=== PATIENT | male | born 1970 | race Caucasian/White ===

== ENCOUNTER 2017-02-15 12:10 | Emergency (ER) | payer MEDICAID ==
[2017-02-15] MEDS ORDERED: Pantoprazole 40 mg EC Tab PO STA (13:00)
[2017-02-15] MEDS ORDERED: Pantoprazole 40 mg EC Tab PO ONE (13:02)
--- NOTE | 2017-02-15 15:53 | ER Physician Documentation ---
DATE OF SERVICE: 02/15/2017 A 47-year-old, weighing 280 pounds, holly ____. The patient was wearing flip flop and suddenly he broke the flip flop on the left and then he started having left knee pain. For past 3-4 days, it is getting worse, so he came to the Emergency Room. The patient came here, but we do not have any MRI machine. We explained to the patient. He understands. He will go to the hospital nearby [place], I believe, there an MRI could be done, so he can be seen what is going on. HISTORY OF PRESENT ILLNESS: This is only pain symptom that the patient has, otherwise, he has history of hypertension and obesity. For hypertension, he takes hydrochlorothiazide. For obesity, eats a good food cooked by his mother point. He does not have any rheumatic fever, valvular heart disease, pericardial disease, cardiomyopathy, atrial fibrillation, or any lung disease. He does not smoke. He does not drink. He works as a holly. He does not have any endocrine disease. No history of any prostate problems. No history of any burning in the urine. No history of frequency, dysuria. No history of abdominal pain, diarrhea or vomiting. PAST MEDICAL HISTORY: Benign and negative. PHYSICAL EXAMINATION: GENERAL: The patient appears to be awake, alert, oriented. He has some mild pain in the left knee joint ____ 5/10, especially if he moves around and walks, he will have some pain. He can walk. When he came here, he had more pain, but now has gone down. VITAL SIGNS: Pulse is 94, blood pressure 139/79, 99% saturation, height is 6 feet, weighing 280 pounds. EXTREMITIES: The left knee is swollen, painful, tender, especially in the left patellar area. Lower left patellar area is painful, tender movements. From one side to the other side, it is painful also. The patient has no edema, no cyanosis, no petechiae, no ecchymosis. CHEST: Clear. Trachea is central. Fairly good air entry in both lungs. No rales, rhonchi or bronchial breathing. ABDOMEN: Soft, benign and negative. CENTRAL NERVOUS SYSTEMS: Within normal limits. HEART: Reveals normal heart sounds. No fourth heart sounds. Second heart sound is physiologically split. Third heart sound is absent. ABDOMEN: Obese, otherwise benign and negative. Liver and spleen not enlarged. No ____ in the abdominal cavity. CLINICAL IMPRESSION: The patient has pain in the left knee joint after he broke his flip flop, which he was wearing for about 4 days and it looks like he has some significant pain in the left knee joint. Without an MRI machine, one cannot see for sure what is going on in the left knee joint whether there is any patellar injury or meniscus tear or any ligaments are broken, etc., and we do not have any. Once we send him to another hospital, he can have a thoracic surgeon also look at him and do the needful thing for him. The patient was explained about this condition. He understands and accepts and we will be sending him to [facility] where he will take medications. In the meantime for his pain, we will give him Ultram 30 mg shot IM. His other diagnosis includes: 1. Hypertension, for which he takes hydrochlorothiazide. 2. ALLERGY TO ERYTHROMYCIN. 3. Morbid obesity. The patient was seen in the Emergency Room. His blood pressure was within normal limits, controlled. JOB# [id number]
== END 2017-02-15 12:45 | disposition home or self-care (01) ==
LOC: ER 12:10
DX: M25.562 Pain in left knee (principal); I10 Essential (primary) hypertension; E66.01 Morbid (severe) obesity due to excess calories; Z88.1 Allergy status to other antibiotic agents; Z68.38 Body mass index [BMI] 38.0-38.9, adult
CPT/HCPCS: 99283; 96372; J1885; Z7502; Z7610

== ENCOUNTER 2018-08-11 11:10 | Emergency (ER) | payer MEDICAID ==
[2018-08-11] MEDS ORDERED: Sodium Chloride 0.9% 1,000 ML IV ONE (11:23)
--- NOTE | 2018-08-11 11:53 | ED Physician Chart ---
ED Chief Complaint/HPI - Patient Information Date Seen:: 08/11/18 Time Seen:: 11:20 Chief Complaint:: Abdominal Pain History of Present Illness:: onset x 5 days of intermittent, crampy, diffuse abdominal pain, N/D x 9; pt denies trauma, LOC, ALOC, AMS, H/As, S/T, neck pain, cough, C/P, SOB, A/V/C, fever, chills, or urinary s/s; pt is eating regular diet and is urinating well; pt last urinated one hour MANAGER EMS: Pt's Abdominal Pain resolved upon ER arrival Allergies:: Allergies Allergy/AdvReac Type Severity Reaction Status Date / Time erythromycin base Allergy Verified 02/15/17 12:31 Vitals:: Vital Signs - 8 hr 08/11/18 08/11/18 11:21 11:45 Temp 97.9 F HR 79 75 RR 16 16 BP 120/93 143/93 O2 Sat % 96 97 Historian:: Patient Review:: Nurse's Note Reviewed, Old Chart Reviewed ED Review of Systems - Review of Systems General/Constitutional: No fever, No chills, No weight loss, No weakness, No diaphoresis, No edema, No loss of appetite Skin: No skin lesions, No rash, No bruising Head: No headache, No light-headedness Eyes: No loss of vision, No pain, No diplopia ENT: No earache, No nasal drainage, No sore throat, No tinnitus Neck: No neck pain, No swelling, No thyromegaly, No stiffness, No mass noted Cardio Vascular: No chest pain, No palpitations, No PND, No orthopnea, No edema Pulmonary: No SOB, No cough, No sputum, No wheezing GI: Nausea, Vomiting, Diarrhea, Pain, No melena, No hematochezia, No constipation, No hematemesis G/U: No dysuria, No frequency, No hematuria Musculoskeletal: No bone or joint pain, No back pain, No muscle pain Endocrine: No polyuria, No polydipsia Psychiatric: No prior psych history, No depression, No anxiety, No suicidal ideation, No homicidal ideation, No auditory hallucination, No visual hallucination Hematopoietic: No bruising, No lymphadenopathy Allergic/Immuno: No urticaria, No angioedema Neurological: No syncope, No focal symptoms, No weakness, No paresthesia, No headache, No seizure, No dizziness, No confusion, No vertigo ED Past Medical History - Past Medical History Obtainable: Yes Past Medical History: HTN, DM, Dyslipidemia Family History: Diabetes Melitus, HTN Social History: Non Smoker, No Alcohol, No Drug Use, Surgical History: None Psychiatricy History: None Medication: Reviewed Family Medical History - Family Member Mother History Unknown: Yes Ethnicity: Non- Living Status: Still Living Hx Family Cancer: No Hx Family Coronary Artery Disease: No Hx Family Congestive Heart Failure: No Hx Family Hypertension: No Hx Family Stroke: No Hx Family Diabetes: No Hx Family Seizures: No Hx Family Dementia: No Hx Family AIDS: No Hx Family HIV: No Hx Family COPD: No Hx Family Hepatitis: No Hx Family Psychiatric Problems: No Hx Family Tuberculosis: No ED Physical Exam - Physical Examination General/Constitutional: Awake, Well-developed, well-nourished, Alert, No distress, GCS 15, Non-toxic appearing, Ambulatory Head: Atraumatic Eyes: Lids, conjuctiva normal, PERRL, EOMI Skin: Nl inspection, No rash, No skin lesions, No ecchymosis, Well hydrated, No lymphadenopathy ENMT: External ears, nose nl, TM canals nl, Nasal exam nl, Lips, teeth, gums nl , Oropharynx nl, Tonsils nl Neck: Nontender, Full ROM w/o pain, No JVD, No nuchal rigidity, No bruit, No mass, No stridor Other Neck comments:: supple; no meningeal signs; no cervical tenderness; no bruits Respiratory: Nl effort/Exclusion, Clear to Auscultation, No Wheeze/Rhonchi/Rales Cardio Vascular: RRR, No murmur, gallop, rubs, NL S1 S2, Carotid/Femoral/Distal pulses equal bilaterally GI: No tenderness/rebounding/guarding, No organomegaly, No hernia, Normal BS's, Nondistended, No mass/bruits, No McBurney tenderness, Rectum exam nl Other GI comments:: no pulsatile maases; Stool is Negative for Occult Blood; Good Bowel Sounds : No CVA tenderness Extremities: No tenderness or effusion, Full ROM, normal strength in all extremities, No edema, Normal digits & nails Neuro/Psych: Alert/oriented, DTR's symmetric, Normal sensory exam, Normal motor strength, Judgement/insight normal, Mood normal, Normal gait, No focal deficits Other Neuro/Psych comments:: no focal signs Misc: Normal back, No paraspinal tenderness ED Labs/Radiology/EKG Results - Lab Results Comments:: Reviewed - Radiology Results Comments:: X-Rays: deferred by pt - EKG Interpretations EKG Time:: 11:44 Rate & Rhythm: 74; NSR Comments:: non-specific st-t changes ED Septic Shock - . Is Septic Shock (SBP<90, OR Lactate>4 mmol\L) present?: No - <6hrs of presentation: Vital Signs: Vital Signs - 8 hr 08/11/18 08/11/18 11:21 11:45 Temp 97.9 F HR 79 75 RR 16 16 BP 120/93 143/93 O2 Sat % 96 97 ED Reassessment (Disposition) - Reassessment Reassessment:: pt tolerated po fluids well in ER; pt is asymptomatic upon discharge Reassessment Condition:: Improved - Diagnosis Diagnosis:: Abdominal Pain; N/V/D; AGE; Diabetic Gastroparesis; Gastritis; DM; Hyperlipidemia; Hypertension; Viral Syndrome - Aftercare/Follow up Instructions Aftercare/Follow-Up Instructions:: Counseled pt regarding lab results/diagnosis & need follow up, Refer to Discharge Instructions, Counseled pt & family regarding lab results/diagnosis & need follow up Notes:: 1800 Calorie ADA-KARAN-Low Cholesterol Clear Liquid Diet; Encourage Fluids - Patient Disposition Discharge/Transfer:: Home Condition at Disposition:: Stable, Improved (RTER prn if existing s/s reoccur and/or get worse and/or any other new s/s occur; Have Blood Pressure Re-Checked in one day by PMD; ACIs given for all above Dx; Refer to GI Specialist/ Film Laboratory Technician [facility]IRGIL; F/U with PMD in one day or prn; RTER prn if concerned)
[2018-08-11 12:02] LABS: INR 1.03 (0.5-1.4); PROTHROMBIN TIME (TEST) 10.7 SECONDS (9.5-11.5)
[2018-08-11 12:07] LABS: % BASOPHILS 0.5 % (0.0-2.0); % EOSINOPHILS 1.3 % (0.0-5.0); % LYMPHOCYTES 12.1 % (20.0-50.0); % MONOCYTES 6.4 % (2.0-10.0); % NEUTROPHILS 79.7 % (40.0-80.0); EOSINOPHILE ABSOLUTE 0.1 Th/cmm (0.1-0.4); HEMATOCRIT 42.6 % (41.0-60); HEMOGLOBIN 13.9 gm/dL (12-16); LYMPHOCYTE ABSOLUTE 0.9 Th/cmm (1.5-3.0); MEAN CELL VOLUME 90.1 fl (80-99); MEAN CORPUSCULAR HEMOGLOBIN 29.4 pg (26.0-30.0); MEAN CORPUSCULAR HGB CONC 32.6 pg (28.0-36.0); MEAN PLATELET VOLUME 8.7 fl; MONOCYTE ABSOLUTE 0.5 Th/cmm (0.3-1.0); NEUTROPHILE ABSOLUTE 5.9 Th/cmm (1.8-8.0); PLATELET COUNT 178 Th/cmm (150-400); RED BLOOD COUNT 4.73 Mil/cmm (4.30-5.70); RED CELL DISTRIBUTION WIDTH 13.6 % (11.5-20.0); WHITE BLOOD COUNT 7.4 Th/cmm (4.8-10.8)
[2018-08-11 12:07] LABS: ALB/GLOB RATIO 1.3 (1.0-1.8); ALBUMIN 3.6 gm/dL (4.2-5.5); ALKALINE PHOSPHATASE 60 U/L (34-104); AMYLASE SERUM 33 U/L (29-103); ANION GAP 13.3 (7.0-16.0); BILIRUBIN,TOTAL 0.5 mg/dL (0.3-1.0); BUN - UREA NITROGEN 14 mg/dL (7-25); CALCIUM SERUM 9.2 mg/dL (8.6-10.3); CARBON DIOXIDE 19.6 mEq/L (21.0-31.0); CHLORIDE 108 mEq/L (98-107); CHOLESTEROL 149 mg/dL (<200); CREATININE - SERUM 0.7 mg/dL (0.7-1.3); CREATININE KINASE 39 U/L (30-223); GFR AFRICAN-AMERICAN > 60.0 ml/min (>90); GFR NON AFRICAN-AMERICAN > 60.0 ml/min; GLUCOSE 153 mg/dL (70-105); HDL -HIGH DENSITY LIPOPROTEIN 39 mg/dL (23-92); LIPASE 9 U/L (11-82); POTASSIUM SERUM 3.9 mEq/L (3.5-5.1); SGOT 16 U/L (13-39); SGPT/ALT 30 U/L (7-52); SODIUM SERUM 137 mEq/L (136-145); TOTAL PROTEIN,SERUM 6.4 gm/dL (6.0-8.3); TRIGLYCERIDES 107 mg/dL (<150)
[2018-08-11 12:33] LABS: URINE SOURCE CLEAN C
[2018-08-11 12:38] LABS: URINE BILIRUBIN NEGATIVE (NEGATIVE); URINE BLOOD NEGATIVE (NEGATIVE); URINE GLUCOSE (UA) NEGATIVE (NEGATIVE); URINE KETONE NEGATIVE (NEGATIVE); URINE LEUKOCYTE ESTERASE NEGATIVE (NEGATIVE); URINE NITRATE NEGATIVE (NEGATIVE); URINE PH 5.5 (4.6 - 8.0); URINE PROTEIN NEGATIVE (NEGATIVE); URINE UROBILINOGEN 0.2 E.U./dL (0.2 - 1.0)
[2018-08-11 13:07] LABS: URINE CLARITY CLEAR (CLEAR); URINE COLOR YELLOW; URINE MICROSCOPIC INDICATED? YES; URINE RBC NONE SEEN /hpf (0-5); URINE WBC 0-2 /hpf (0-5)
[2018-08-11 13:08] LABS: URINE BACTERIA FEW /hpf (NONE SEEN); URINE EPITHELIAL CELLS NONE SEEN /lpf (FEW)
== END 2018-08-11 13:46 | disposition home or self-care (01) ==
LOC: ER 11:10
DX: K52.9 Noninfective gastroenteritis and colitis, unspecified (principal); K29.70 Gastritis, unspecified, without bleeding; E11.43 Type 2 diabetes mellitus with diabetic autonomic (poly)neuropathy; K31.84 Gastroparesis; I10 Essential (primary) hypertension; E78.5 Hyperlipidemia, unspecified; B34.9 Viral infection, unspecified; Z88.1 Allergy status to other antibiotic agents
CPT/HCPCS: 99284; 96374; 94760; 93005; 84484; 83880; 36415; 85025; 85610; 81001; 82150; 82550; 83690; 80053; 80061; J2405; J7030